=== PATIENT | female | born 1975 | race Caucasian/White ===

== ENCOUNTER 2024-02-10 00:27 | Emergency (ER) | payer OTHER, SELFPAY ==
[2024-02-10 00:36] VITALS: BP 139/100; PULSE 68; RESP 18; TEMP 36.4; O2SAT 99; BMI 30.1
[2024-02-10] MEDS: hydrOXYzine pamoate 25 MG CAPSULE 50 MG PO (00:55)
--- NOTE | 2024-02-10 01:01 | ED_ITS ---
HPI - General Adult General Chief complaint: Cough Stated complaint: cough/congested Time Seen by Provider: 02/10/24 00:40 Source: patient Mode of arrival: ambulatory Limitations: no limitations History of Present Illness HPI narrative: 48-year-old female presents the emergency department for evaluation of cough for the past 5 days. No fever, no severe shortness of breath. Cough is nonproductive. No history of asthma or chronic lung disease. She is on a mild immunosuppressant due to MS. No history of chest surgeries. No recent use of antibiotics or pertinent travel. She has tried DayQuil and NyQuil to help with the cough. She came to the emergency department because she could not sleep tonight due to the cough. Does have some sinus congestion. Denies other symptomatic symptoms. Past medical history notable for hypertension and MS. Home meds are amlodipine and an immunosuppressant. Nonsmoker. Denies drug allergies. ROS notable for the HEENT symptoms as above. Otherwise negative for other generalized, HEENT, respiratory, cardiovascular or GI changes. Related Data Home Medications ?Medication ?Instructions ?Recorded ?Confirmed amlodipine 10 mg tablet 10 mg PO DAILY 02/10/24 02/10/24 Previous Rx's ?Medication ?Instructions ?Recorded benzonatate 200 mg capsule 200 mg PO BID-TID PRN cough #20 02/10/24 caps prednisone 20 mg tablet 20 mg PO DAILY #5 tabs 02/10/24 Allergies Allergy/AdvReac Type Severity Reaction Status Date / Time No Known Drug Allergies Allergy Verified 02/10/24 00:40 Exam Const: Vital Signs, click to edit/add: Vital Signs - 24 hr 02/10/24 00:36 Temperature 97.6 F Pulse Rate [Pulse Oximeter] 68 Respiratory Rate 18 Blood Pressure [Ri ght Upper Arm] 139/100 H Pulse Oximetry 99 Oxygen Delivery Me thod Room Air Documenting provider has reviewed patient's vital signs: yes Common normals: no apparent distress and alert General appearance: cooperative and well kempt HENMT: Common normals: normocephalic Head and scalp: normocephalic Other: TMs normal bilaterally. Nose with some mild clear mucus rhinorrhea. Oropharynx with cobblestoning clear mucus postnasal drip mild erythema to the tonsillar pillars but no exudate or tonsillar enlargement. Moist oral membranes with good dentition. Eye: Common normals: conjunctivae normal General eye: normal appearance of both eyes Conjunctiva: conjunctiva(e) normal Neck & C-Spine: Other: Mild anterior cervical and submandibular lymphadenopathy. Resp: Common normals: normal respiratory effort, no use of accessory muscles and clear to auscultation bilaterally Effort & inspection: able to speak in complete sentences Auscultation: clear to auscultation bilaterally Cardio: Common normals: regular rate, regular rhythm, S1 normal heart sound, S2 normal heart sound and no murmurs Rate: regular rate Rhythm: regular rhythm Heart sounds: S1 normal and S2 normal Extremity: Common normals: normal to inspection and normal capillary refill Neuro: Sensorium/orientation: alert Motor exam: no movement abnormalities noted Psych: Appearance: well kempt Activity/motor behavior: appropriate eye contact Insight: insight good Judgement: judgment good Skin: Common normals: no rashes or lesions noted General skin exam: no rashes or lesions noted Course Course ED Course: Mild upper respiratory infection with no signs of hypoxia, tachypnea, respiratory distress. No signs of bacterial infection based on history or exam. Suspect viral illness. Even with use of a mild immunosuppressant, there are no indications for antibiotics at this time. Patient counseled on diagnosis and management. I believe she is just most frustrated that she cannot sleep. Cough does not seem overwhelming on exam today. She did drive herself to the ED today. She will be given 50 mg of Vistaril to help her sleep which she will take to go and take once she gets home. She verbalizes understanding and agreement. She will be given to [facility] prior to discharge and is counseled on prednisone. Would like for her to start a 3-5 day course of prednisone once daily starting in the morning. She is also given a prescription for additional Tessalon if needed. May continue [id number] cough suppressants. Okay to stop the prednisone if improving after 3 days but may continue for up to 5 days. Symptoms are likely to last about 10 days total. Office visit recommended if not improving by day 14. ED visit if there are any signs of significant shortness of breath, fevers or other severe worsening. Written instructions provided. Prescription sent to pharmacy. She verbalizes understanding and agreement. Vital Signs Vital signs: Initial Vital Signs Temperature 97.6 F 02/10/24 00:36 Temperature Source Temporal Artery Scan 02/10/24 00:36 Pulse Rate 68 02/10/24 00:36 Pulse Rhythm Regular 02/10/24 00:36 Respiratory Rate 18 02/10/24 00:36 Blood Pressure 139/100 H 02/10/24 00:36 Blood Pressure Mean 113 H 02/10/24 00:36 Blood Pressure Position Sitting 02/10/24 00:36 Pulse Oximetry 99 02/10/24 00:36 Oxygen Delivery Method Room Air 02/10/24 00:36 Vital Signs Temperature 97.6 F 02/10/24 00:36 Pulse Rate 68 02/10/24 00:36 Respiratory Rate 18 02/10/24 00:36 Blood Pressure 139/100 H 02/10/24 00:36 Pulse Oximetry 99 02/10/24 00:36 Oxygen Delivery Method Room Air 02/10/24 00:36 Temperature 97.6 F 02/10/24 00:36 Pulse Rate 68 02/10/24 00:36 Respiratory Rate 18 02/10/24 00:36 Blood Pressure 139/100 H 02/10/24 00:36 Pulse Oximetry 99 02/10/24 00:36 Oxygen Delivery Method Room Air 02/10/24 00:36 Medications Administered Medications: Discontinued Medications Generic Name Dose Route Start Last Admin Trade Name Freq PRN Reason Stop Dose Admin Hydroxyzine Pamoate 50 mg 02/10/24 00:52 02/10/24 00:55 Hydroxyzine Pamoate 25 Mg Capsule PO 02/10/24 00:53 50 mg ONCE ONE Administration Discharge Plan Discharge Clinical Impression: Cough Patient Disposition: Home, Self-Care Condition: Stable Instructions: Upper Respiratory Infection (ED) Additional Instructions: As we discussed, your symptoms are consistent with a mild upper respiratory infection. There are no signs of pneumonia, low oxygen levels, bacterial infection or other dangerous compromise today. This is good news. These type of cough can be frustrating and I will prescribe some medicine to help decrease your misery. First, I recommend prednisone once daily for the next 3-5 days. You may stop after 3 days if your symptoms have improved markedly or continue the full 5 days if you are still symptomatic. I recommend you take this in the daylight hours as it may keep you awake at night but it should provide some nice anti-inflammatory benefit that will last even into the night. I will send a prescription to your local pharmacy. For cough, I recommend [facility]. This will help coat and soothe that cough reflex in the upper chest. It works for about 2/3 of people. I will send in additional supply to your pharmacy. It is okay to continue using Mucinex and other cough suppressants if needed. I do think that you will get benefit from a nasal steroid spray like Flonase or other similar agent. You may purchase these [id number] at your local pharmacy. For sleep, you were given Vistaril tonight. You may continue at home with 10 mg of melatonin and 2 Benadryl nightly if you continue to have sleep problems. Of course you should avoid caffeine after 2:00 p.m. and try to take your prednisone no later than noon daily. If your symptoms persist for more than 14 days or if you have worsening sooner that would include high fevers, severe shortness of breath or other signs of significant worsening, you should be re-evaluated sooner. Activity Level: No Restrictions Discharge Diet: Regular Prescriptions: New prednisone 20 mg tablet 20 mg PO DAILY Qty: 5 0RF benzonatate 200 mg capsule 200 mg PO BID-TID PRN (Reason: cough) Qty: 20 0RF No Action amlodipine 10 mg tablet 10 mg PO DAILY Follow Up/Referrals: Romelia Perez MD [Primary Care Provider] - Stand Alone Forms: Thumb Reading Info Instructions
[2024-02-10] MEDS: BENZONATATE 100 MG CAPSULE 200 MG PO (01:06)
[2024-02-10 01:24] LABS: PCR FLU A Negative PCR FLU A (Negative); PCR FLU B Negative PCR FLU B (Negative); PCR RSV Negative PCR RSV (Negative); SARS PCR* Negative SARS-CoV-2 (Negative)
== END 2024-02-10 01:12 | disposition home or self-care (01) ==
LOC: ED 01:11
PROVIDERS: Emergency Provider Family Medicine; PCP Family Medicine
DX: R05.9 Cough, unspecified (principal)
CPT/HCPCS: 87631; 99283; 99284; A9270